=== PATIENT | male | born 1990 | race Asian ===

== ENCOUNTER 2021-05-02 00:25 | Emergency (ER) | payer MEDICAID ==
[~2021-05-02] VITALS: Ht 162.6 cm; Wt 145.4 kg
[2021-05-02] MEDS ORDERED: MELA3TAB89 PO (00:33)
[2021-05-02 00:56] LABS: EOSINOPHILS % (AUTO) 2.4 % (1.0-6.0); HEMATOCRIT 25.4 % (41-53); HEMOGLOBIN 7.1 g/dL (13.5-17.5); LYMPHOCYTES % (AUTO) 18.4 % (22.0-44.0); MEAN CORPUSCULAR HEMOGLOBIN 14.6 pg (26.0-34.0); MEAN CORPUSCULAR VOLUME 52 fL (80-100); MONOCYTES # (AUTO) 0.7 K/uL (0.1-1.0); MONOCYTES % (AUTO) 6.4 % (2.0-9.0); NEUTROPHILS # (AUTO) 7.7 K/uL (1.8-7.7); NEUTROPHILS % (AUTO) 71.8 % (40.0-70.0); PLATELET COUNT (AUTO) 408 K/uL (150-450); RED BLOOD CELL COUNT(AUTO) 4.86 MIL/uL (4.50-5.90); RED CELL DISTRIBUTION WIDTH 20.7 % (11.5-14.5)
[2021-05-02 01:07] LABS: CALCIUM, TOTAL 8.7 mg/dL (8.8-10.5); CREATININE 1.55 mg/dL (0.60-1.30); POTASSIUM 3.6 mmol/L (3.5-5.1)
[2021-05-02 01:13] LABS: ALBUMIN 3.5 g/dL (3.4-5.0); BILIRUBIN,TOTAL 0.8 mg/dL (0.1-1.0); TOTAL PROTEIN, SERUM 8.2 g/dL (6.4-8.2)
[2021-05-02 01:17] LABS: PLATELET MORPHOLOGY COMMENT GIANT PLTS PRESENT
[2021-05-02] MEDS ORDERED: SODIUM CHLORIDE 0.9% 1,000 ML IV ONE (01:45)
[2021-05-02 02:28] LABS: COVID AG,FIA SOURCE NASOPHARYNGEAL
[2021-05-02] MEDS ORDERED: LORazepam 1 MG TABLET PO ONE (02:30)
[2021-05-02 02:57] LABS: AMPHET/METH SCREEN,URINE NEGATIVE (NEGATIVE); BARBITURATE SCREEN, URINE NEGATIVE (NEGATIVE); BENZODIAZEPINES SCREEN,URINE NEGATIVE (NEGATIVE); CANNABINOID SCREEN,URINE NEGATIVE (NEGATIVE); COCAINE SCREEN,URINE POSITIVE (NEGATIVE); METHADONE SCREEN, URINE NEGATIVE (NEGATIVE); OPIATE SCREEN,URINE NEGATIVE (NEGATIVE)
[2021-05-02 03:00] LABS: PHENCYCLIDINE SCREEN,URINE NEGATIVE (NEGATIVE)
[2021-05-02 04:40] VITALS: BP 180/102
== END 2021-05-02 04:43 | disposition home or self-care (01) ==
LOC: EMS 00:26
DX: R06.02 Shortness of breath (principal); F17.210 Nicotine dependence, cigarettes, uncomplicated; Z20.822 Contact with and (suspected) exposure to COVID-19
CPT/HCPCS: 36415; 71045; 80053; 80307; 82550; 83880; 84484; 85025; 87426; 93005; 96360; 99285; G0480; J7030

== ENCOUNTER 2021-05-31 17:41 | Inpatient (IN) | payer MEDICAID ==
[~2021-05-31] VITALS: Ht 162.6 cm; Wt 118.8 kg
[~2021-05-31 17:41] MED LIST: MELA3TAB89 PO
[2021-05-31 20:39] LABS: HEMATOCRIT 28.2 % (41-53); HEMOGLOBIN 7.8 g/dL (13.5-17.5); MEAN CORPUSCULAR HEMOGLOBIN 13.9 pg (26.0-34.0); MEAN CORPUSCULAR HGB CONC 27.5 G/dL (31.0-37.0); MEAN CORPUSCULAR VOLUME 50 fL (80-100); PLATELET COUNT (AUTO) 468 K/uL (150-450); RED CELL DISTRIBUTION WIDTH 21.8 % (11.5-14.5)
[2021-05-31 20:47] LABS: CALCIUM, TOTAL 7.6 mg/dL (8.8-10.5); CREATININE 1.43 mg/dL (0.60-1.30); POTASSIUM 3.7 mmol/L (3.5-5.1)
[2021-05-31 20:49] LABS: INR 1.2 (0.9-1.1); PROTHROMBIN TIME 12.4 SEC (9.4-11.6)
[2021-05-31 21:02] LABS: COVID AG,FIA SOURCE NASOPHARYNGEAL
[2021-05-31 21:12] LABS: ALBUMIN 3.5 g/dL (3.4-5.0); BILIRUBIN,TOTAL 1.1 mg/dL (0.1-1.0)
[2021-05-31] MEDS ORDERED: LORazepam 1 MG TABLET PO ONE (21:45)
[2021-05-31] MEDS ORDERED: LORazepam 2 MG/ML VIAL IVP ONE (21:45)
[2021-05-31] MEDS ORDERED: ATENOLOL 25 MG TABLET PO ONE (22:15)
[2021-05-31] MEDS ORDERED: 0.9% SODIUM CHLORIDE 10 ML SYRINGE IVP PRN (22:15)
[2021-05-31] MEDS ORDERED: ONDANSETRON HCL 4 MG/2 ML VIAL IVP PRN (22:15)
[2021-05-31] MEDS ORDERED: AZITHROMYCIN 500 MG/NS 250 ML IV ONE (22:15)
[2021-05-31] MEDS ORDERED: ACETAMINOPHEN 325 MG TABLET PO PRN (22:15)
[2021-05-31] MEDS ORDERED: SODIUM CHLORIDE 0.9% 1,000 ML IV ONE (22:15)
[2021-05-31 22:26] LABS: BAND NEUTROPHILS % (MANUAL) 3 % (0-5); BASOPHILS % (MANUAL) 1 % (0-2); LYMPHOCYTES % (MANUAL) 17 % (22-44); MONOCYTES % (MANUAL) 3 % (2-9); SEGMENTED NEUTROPHILS % 76 % (40-70)
[2021-05-31 23:59] LABS: D-DIMER 0.32 mg/L FEU (0.00-0.50)
[2021-06-01 00:17] LABS: APPEARANCE,URINE CLEAR (CLEAR); BILIRUBIN,URINE NEGATIVE (NEGATIVE); GLUCOSE, URINE (UA) NEGATIVE (NEGATIVE); KETONES,URINE NEGATIVE (NEGATIVE); LEUKOCYTE ESTERASE ,URINE NEGATIVE (NEGATIVE); NITRATE,URINE NEGATIVE (NEGATIVE); OCCULT BLOOD,URINE NEGATIVE (NEGATIVE); PH,URINE 5.5 (5.0-8.0); PROTEIN,URINE SEE CONFIRM (NEGATIVE); UROBILINOGEN,URINE 0.2 mg/dL (<=1.0)
[2021-06-01 00:20] LABS: AMPHET/METH SCREEN,URINE NEGATIVE (NEGATIVE); BARBITURATE SCREEN, URINE NEGATIVE (NEGATIVE); BENZODIAZEPINES SCREEN,URINE NEGATIVE (NEGATIVE); CANNABINOID SCREEN,URINE NEGATIVE (NEGATIVE); COCAINE SCREEN,URINE NEGATIVE (NEGATIVE); METHADONE SCREEN, URINE NEGATIVE (NEGATIVE); OPIATE SCREEN,URINE NEGATIVE (NEGATIVE)
[2021-06-01 00:22] LABS: PHENCYCLIDINE SCREEN,URINE NEGATIVE (NEGATIVE)
[2021-06-01 00:27] LABS: SULFOSALICYLIC ACID,URINE 1+ (Negative)
[2021-06-01 00:29] LABS: CREATININE,URINE RANDOM 155.3 mg/dL (30.0-125.0)
[2021-06-01 00:42] LABS: RBC,URINE 0-2 /HPF (0-2); WBC,URINE 0-2 /HPF (0-5)
[2021-06-01 00:43] LABS: BACTERIA,URINE Few /HPF (None Seen)
[2021-06-01 00:46] LABS: % IRON SATURATION 3.1 % (30-44)
[2021-06-01 06:26] LABS: BASOPHILS % (AUTO) 0.7 % (0.0-2.0); EOSINOPHILS % (AUTO) 1.1 % (1.0-6.0); HEMATOCRIT 25.9 % (41-53); LYMPHOCYTES # (AUTO) 1.6 K/uL (1.0-4.8); MEAN CORPUSCULAR HEMOGLOBIN 13.3 pg (26.0-34.0); MEAN CORPUSCULAR HGB CONC 26.3 G/dL (31.0-37.0); MEAN CORPUSCULAR VOLUME 50 fL (80-100); MONOCYTES # (AUTO) 0.6 K/uL (0.1-1.0); MONOCYTES % (AUTO) 5.8 % (2.0-9.0); NEUTROPHILS # (AUTO) 7.7 K/uL (1.8-7.7); NEUTROPHILS % (AUTO) 76.4 % (40.0-70.0); PLATELET COUNT (AUTO) 406 K/uL (150-450); RED BLOOD CELL COUNT(AUTO) 5.14 MIL/uL (4.50-5.90); RED CELL DISTRIBUTION WIDTH 21.5 % (11.5-14.5)
[2021-06-01 06:35] LABS: ALANINE AMINOTRANSFERASE 58 U/L (12-78); ALBUMIN 3.2 g/dL (3.4-5.0); ALKALINE PHOSPHATASE 72 U/L (46-116); ANION GAP 13 mmol/L (8-16); ASPARTATE AMINOTRANSFERASE 39 U/L (15-37); BILIRUBIN,TOTAL 1.1 mg/dL (0.1-1.0); CALCIUM, TOTAL 7.9 mg/dL (8.8-10.5); CARBON DIOXIDE 20 mmol/L (22-29); CHLORIDE 107 mmol/L (98-107); CREATININE 1.33 mg/dL (0.60-1.30); GLOMERULAR FILTR. RATE CALC > 60 mL/min (>60); GLUCOSE,RANDOM 101 mg/dL (70-110); POTASSIUM 3.9 mmol/L (3.5-5.1); SODIUM SERUM 140 mmol/L (136-145); TOTAL PROTEIN, SERUM 7.2 g/dL (6.4-8.2); UREA NITROGEN, BLOOD 19 mg/dL (7-18)
[2021-06-01 06:51] LABS: HEMOGLOBIN 6.8 g/dL (13.5-17.5)
[2021-06-01] MEDS ORDERED: ONDANSETRON HCL 4 MG/2 ML VIAL IVP PRN (07:30)
[2021-06-01] MEDS ORDERED: ACETAMINOPHEN 325 MG TABLET PO PRN (07:30)
[2021-06-01 08:24] LABS: EOSINOPHILS % (AUTO) 1.1 % (1.0-6.0); HEMOGLOBIN 7.3 g/dL (13.5-17.5); LYMPHOCYTES # (AUTO) 1.5 K/uL (1.0-4.8); MEAN CORPUSCULAR HEMOGLOBIN 13.1 pg (26.0-34.0); MEAN CORPUSCULAR HGB CONC 25.9 G/dL (31.0-37.0); MEAN CORPUSCULAR VOLUME 51 fL (80-100); MONOCYTES # (AUTO) 0.5 K/uL (0.1-1.0); MONOCYTES % (AUTO) 5.6 % (2.0-9.0); NEUTROPHILS # (AUTO) 7.2 K/uL (1.8-7.7); NEUTROPHILS % (AUTO) 75.3 % (40.0-70.0); PLATELET COUNT (AUTO) 425 K/uL (150-450); RED BLOOD CELL COUNT(AUTO) 5.53 MIL/uL (4.50-5.90); RED CELL DISTRIBUTION WIDTH 21.8 % (11.5-14.5)
[2021-06-01 10:12] VITALS: BP 145/89
[2021-06-01 11:04] VITALS: BP 144/68
[2021-06-01] MEDS: FERROUS SULFATE 325 MG EC TABLET PO SCH ×2 (12:38→17:28)
[2021-06-01] MEDS: BENZONATATE 100 MG CAPSULE PO PRN ×2 (12:38→20:30)
[2021-06-01 15:23] VITALS: BP 148/78
[2021-06-01 20:03] VITALS: BP 162/93
[2021-06-01 20:48] VITALS: BP 170/90
[2021-06-01] MEDS ORDERED: BENZOCAINE/MENTHOL LOZENGE PO PRN (21:00)
[2021-06-01] MEDS: LABETALOL HCL 100 MG TABLET PO SCH (21:36)
[2021-06-02 00:02] VITALS: BP 147/98
[2021-06-02 04:14] VITALS: BP 142/84
[2021-06-02 08:00] VITALS: BP 149/101
[2021-06-02] MEDS: LABETALOL HCL 100 MG TABLET PO SCH (09:00)
[2021-06-02] MEDS: FERROUS SULFATE 325 MG EC TABLET PO SCH ×3 (09:01→18:01)
[2021-06-02] MEDS ORDERED: METOPROLOL TARTRATE 25 MG TABLET PO SCH (10:45)
[2021-06-02] MEDS ORDERED: BENZ1LOZ50 PO (10:54)
[2021-06-02] MEDS ORDERED: FERR-72 PO (10:54)
[2021-06-02] MEDS ORDERED: AMLO-257 PO (10:54)
[2021-06-02] MEDS ORDERED: GUAIFDM PO (10:54)
[2021-06-02] MEDS ORDERED: LABE100T51 PO (10:54)
[2021-06-02] MEDS ORDERED: AZIT500T4 PO (10:55)
[2021-06-02] MEDS: GuaiFENesin/D-METHORPHAN [SUGAR-FREE] 200-20MG/10 ML SYRUP UDCUP PO SCH ×2 (11:56→18:01)
[2021-06-02 11:58] VITALS: BP 130/98
[2021-06-02 12:33] LABS: ANION GAP 10 mmol/L (8-16); CALCIUM, TOTAL 8.3 mg/dL (8.8-10.5); CARBON DIOXIDE 23 mmol/L (22-29); CHLORIDE 105 mmol/L (98-107); CREATININE 1.01 mg/dL (0.60-1.30); EOSINOPHILS % (AUTO) 1.9 % (1.0-6.0); GLOMERULAR FILTR. RATE CALC > 60 mL/min (>60); GLUCOSE,RANDOM 132 mg/dL (70-110); LYMPHOCYTES # (AUTO) 2.4 K/uL (1.0-4.8); LYMPHOCYTES % (AUTO) 19.5 % (22.0-44.0); MEAN CORPUSCULAR HEMOGLOBIN 12.8 pg (26.0-34.0); MEAN CORPUSCULAR HGB CONC 25.1 G/dL (31.0-37.0); MEAN CORPUSCULAR VOLUME 51 fL (80-100); MONOCYTES # (AUTO) 1.1 K/uL (0.1-1.0); MONOCYTES % (AUTO) 9.2 % (2.0-9.0); NEUTROPHILS # (AUTO) 8.3 K/uL (1.8-7.7); NEUTROPHILS % (AUTO) 68.4 % (40.0-70.0); PLATELET COUNT (AUTO) 411 K/uL (150-450); RED BLOOD CELL COUNT(AUTO) 5.49 MIL/uL (4.50-5.90); RED CELL DISTRIBUTION WIDTH 21.8 % (11.5-14.5); SODIUM SERUM 138 mmol/L (136-145); UREA NITROGEN, BLOOD 17 mg/dL (7-18)
[2021-06-02 15:47] VITALS: BP 79/40
[2021-06-02 16:42] VITALS: BP 143/96
== END 2021-06-02 18:45 | disposition home or self-care (01) | DRG 113 ==
LOC: EMS 17:42 → 5S 22:38
PROVIDERS: ADMIT Internal Medicine; ATTEND Internal Medicine
DX: J06.9 Acute upper respiratory infection, unspecified (principal); R65.11 Systemic inflammatory response syndrome (SIRS) of non-infectious origin with acute organ dysfunction; N17.9 Acute kidney failure, unspecified; D63.8 Anemia in other chronic diseases classified elsewhere; D50.9 Iron deficiency anemia, unspecified; F17.210 Nicotine dependence, cigarettes, uncomplicated; Z20.822 Contact with and (suspected) exposure to COVID-19; I12.9 Hypertensive chronic kidney disease with stage 1 through stage 4 chronic kidney disease, or unspecified chronic kidney disease; N18.9 Chronic kidney disease, unspecified; E66.01 Morbid (severe) obesity due to excess calories; Z79.899 Other long term (current) drug therapy; Z68.41 Body mass index [BMI] 40.0-44.9, adult
CPT/HCPCS: 71045; 80048; 80053; 81001; 81002; 82550; 82570; 83540; 83550; 83690; 83880; 84300; 84484; 85025; 85045; 85379; 85610; 85730; 86850; 86900; 86901; 86923; 93005; 99285; J0456; J2060; J2405; J7030; 36415-L1; 36415-TC; U0003

== ENCOUNTER 2025-02-14 23:13 | Inpatient (IN) | payer MEDICAID ==
[~2025-02-14] VITALS: Ht 162.6 cm; Wt 138.6 kg
[~2025-02-14 23:13] MED LIST changes: +FERR325T27 PO; -MELA3TAB89 PO; +METO25 PO; +PANT-31 PO
[2025-02-14] MEDS: NITROGLYCERIN 2% (1 GM=INCH) OINTMENT PACKET TP ONE (23:52)
[2025-02-15] VITALS (8 sets, daily range): BP systolic 128–140; BP diastolic 72–82; PULSE 50–118; RESP 29–48; TEMP 98.5–98.7; O2SAT 94–99
[2025-02-15] MEDS ORDERED: METOPROLOL TARTRATE 25 MG TABLET PO ONE
[2025-02-15] MEDS: AmLODIPine BESYLATE 5 MG TABLET PO ONE ×2 (00:08→02:52)
[2025-02-15 00:15] LABS: BASOPHILS % (AUTO) 0.5 % (0.0-2.0); EOSINOPHILS % (AUTO) 3.1 % (1.0-6.0); HEMOGLOBIN 14.1 g/dL (13.5-17.5); LYMPHOCYTES # (AUTO) 0.7 K/uL (1.0-4.8); LYMPHOCYTES % (AUTO) 6.6 % (22.0-44.0); MEAN CORPUSCULAR HEMOGLOBIN 22.1 pg (26.0-34.0); MEAN CORPUSCULAR VOLUME 69 fL (80-100); MONOCYTES # (AUTO) 0.6 K/uL (0.1-1.0); MONOCYTES % (AUTO) 5.8 % (2.0-9.0); PLATELET COUNT (AUTO) 309 K/uL (150-450); RED BLOOD CELL COUNT(AUTO) 6.35 MIL/uL (4.50-5.90); RED CELL DISTRIBUTION WIDTH 20.8 % (11.5-14.5); WHITE BLOOD COUNT (AUTO) 10.7 K/uL (4.5-11.0)
[2025-02-15 00:27] LABS: ANION GAP 13 mmol/L (8-16); CALCIUM, TOTAL 8.8 mg/dL (8.8-10.5); CARBON DIOXIDE 22 mmol/L (22-29); CHLORIDE 104 mmol/L (98-107); CREATININE 1.89 mg/dL (0.60-1.30); GLOMERULAR FILTR. RATE CALC 41 mL/min (>60); GLUCOSE,RANDOM 99 mg/dL (70-110); POTASSIUM 3.5 mmol/L (3.5-5.1); SODIUM SERUM 139 mmol/L (136-145); UREA NITROGEN, BLOOD 26 mg/dL (7-18)
[2025-02-15 00:31] LABS: ALBUMIN 2.9 g/dL (3.4-5.0); BILIRUBIN,DIRECT 0.4 mg/dL (0.00-0.20); BILIRUBIN,TOTAL 1.2 mg/dL (0.1-1.0); TOTAL PROTEIN, SERUM 7.4 g/dL (6.4-8.2)
[2025-02-15 00:32] LABS: PROTHROMBIN TIME 11.9 SEC (9.4-11.6)
[2025-02-15 00:36] LABS: TROPONIN I-HIGH SENSITIVITY 47 ng/L (<76)
[2025-02-15] MEDS: FUROSEMIDE 20 MG/2 ML VIAL IVP ONE (00:51)
[2025-02-15 02:26] LABS: APPEARANCE,URINE CLEAR (CLEAR); BILIRUBIN,URINE NEGATIVE (NEGATIVE); COLOR,URINE COLORLESS (YELLOW); GLUCOSE, URINE (UA) NEGATIVE (NEGATIVE); KETONES,URINE NEGATIVE (NEGATIVE); LEUKOCYTE ESTERASE ,URINE NEGATIVE (NEGATIVE); NITRATE,URINE NEGATIVE (NEGATIVE); OCCULT BLOOD,URINE TRACE (NEGATIVE); PH,URINE 5.5 (5.0-8.0); PROTEIN,URINE 100-200,SEE CONFIRM mg/dL (NEGATIVE); SPECIFIC GRAVITIY, URINE 1.005 (1.003-1.030); UROBILINOGEN,URINE <=1.0 mg/dL (<=1.0)
[2025-02-15 02:36] LABS: RBC,URINE 0-2 /HPF (0-2); WBC,URINE 0-2 /HPF (0-5)
[2025-02-15 02:37] LABS: BACTERIA,URINE Rare /HPF (None Seen); SULFOSALICYLIC ACID,URINE 3+ (Negative)
[2025-02-15] MEDS: HydrALAZINE HCL 20 MG/ML VIAL IVP ONE (02:52)
[2025-02-15] MEDS: NiCARDipine HCL 25 MG in SODIUM CHLORIDE 0.9% 240 ML IV PRN ×2 (05:18→12:00)
[2025-02-15 06:14] LABS: AMPHET/METH SCREEN,URINE NEGATIVE (NEGATIVE); BARBITURATE SCREEN, URINE NEGATIVE (NEGATIVE); BENZODIAZEPINES SCREEN,URINE NEGATIVE (NEGATIVE); CANNABINOID SCREEN,URINE NEGATIVE (NEGATIVE); COCAINE SCREEN,URINE NEGATIVE (NEGATIVE); METHADONE SCREEN, URINE NEGATIVE (NEGATIVE); OPIATE SCREEN,URINE NEGATIVE (NEGATIVE); PHENCYCLIDINE SCREEN,URINE NEGATIVE (NEGATIVE)
[2025-02-15 06:15] LABS: ALCOHOL, URINE DRUG SCREEN NEGATIVE (NEGATIVE)
[2025-02-15 06:16] LABS: PH,URINE DRUG SCREEN 5.5 (5.0-8.0)
[2025-02-15] MEDS ORDERED: ONDANSETRON HCL 4 MG/2 ML VIAL IVP PRN (08:00)
[2025-02-15] MEDS ORDERED: ACETAMINOPHEN 325 MG TABLET PO PRN (08:00)
[2025-02-15] MEDS ORDERED: BISACODYL 10 MG RECTAL RECTAL SUPPOSITORY PR PRN (08:00)
[2025-02-15] MEDS: METOPROLOL TARTRATE 50 MG TABLET PO SCH (09:03)
[2025-02-15] MEDS: FAMOTIDINE 20 MG TABLET PO SCH (09:03)
[2025-02-15] MEDS: DOCUSATE SODIUM 100 MG CAPSULE PO SCH (09:03)
[2025-02-15] MEDS: HEPARIN SODIUM,PORCINE 5,000 UNITS/ML VIAL SQ SCH (09:03)
[2025-02-15] MEDS: LOSARTAN POTASSIUM 50 MG TABLET PO SCH (09:03)
[2025-02-15 17:42] LABS: ABG BASE EXCESS -5.1 mmol/L (-2.0-3.0); ABG CARBOXYHEMOGLOBIN 1.1 % (0.5-1.5); ABG METHEMOGLOBIN 0.2 % (0.0-1.5); ABG OXYGEN CONTENT 18.9 mL/dL (15.0-23.0); ABG OXYHEMOGLOBIN 93.8 % (94.0-98.0); ABG PCO2 33 mmHg (32.0-48.0); ABG PH 7.395 (7.350-7.450); ABG TOTAL HEMOGLOBIN 14.3 G/dL (13.5-17.5); PO2, ARTERIAL BG 77.9 mmHg (83.0-108.0); SOURCE, BLOOD GAS ARTERIAL; TEMPERATURE, FAHRENHEIT, BG 98.5 FAHREN (96.0-98.6)
[2025-02-15 17:43] LABS: ABG A-A DIFF O2 169.5 mmHg (10-20.0); ALLEN TEST, BLOOD GAS Positive; O2 DEVICE,BLOOD GAS CANNULA (ROOM AIR); SITE, BLOOD GAS LFT RADIAL
[2025-02-15] MEDS: AmLODIPine BESYLATE 5 MG TABLET PO SCH (20:42)
[2025-02-15 22:39] LABS: APPEARANCE,URINE CLEAR (CLEAR); BILIRUBIN,URINE NEGATIVE (NEGATIVE); COLOR,URINE YELLOW (YELLOW); GLUCOSE, URINE (UA) NEGATIVE (NEGATIVE); KETONES,URINE NEGATIVE (NEGATIVE); LEUKOCYTE ESTERASE ,URINE NEGATIVE (NEGATIVE); NITRATE,URINE NEGATIVE (NEGATIVE); OCCULT BLOOD,URINE TRACE (NEGATIVE); PROTEIN,URINE 300-600,SEE CONFIRM mg/dL (NEGATIVE); UROBILINOGEN,URINE <=1.0 mg/dL (<=1.0)
[2025-02-15 22:49] LABS: BACTERIA,URINE Rare /HPF (None Seen); SQUAMOUS EPITHELIAL CELL,UR Rare /LPF (None Seen); WBC,URINE 0-2 /HPF (0-5)
[2025-02-15] MEDS: ETHYL ALCOHOL 62% ANTISEPTIC NASAL SANITIZER 0.6 ML AMPUL NASAL SCH (23:50)
[2025-02-16] VITALS (7 sets, daily range): BP systolic 104–162; BP diastolic 68–111; PULSE 69–78; RESP 22–36; TEMP 97.7–98.4; O2SAT 94–100
[2025-02-16 06:10] LABS: BASOPHILS % (AUTO) 0.8 % (0.0-2.0); EOSINOPHILS % (AUTO) 5.1 % (1.0-6.0); HEMATOCRIT 42.7 % (41-53); HEMOGLOBIN 13.9 g/dL (13.5-17.5); LYMPHOCYTES # (AUTO) 0.8 K/uL (1.0-4.8); LYMPHOCYTES % (AUTO) 11.1 % (22.0-44.0); MEAN CORPUSCULAR HEMOGLOBIN 22.6 pg (26.0-34.0); MEAN CORPUSCULAR HGB CONC 32.6 G/dL (31.0-37.0); MEAN CORPUSCULAR VOLUME 70 fL (80-100); MONOCYTES # (AUTO) 0.5 K/uL (0.1-1.0); MONOCYTES % (AUTO) 7.5 % (2.0-9.0); NEUTROPHILS # (AUTO) 5.6 K/uL (1.8-7.7); NEUTROPHILS % (AUTO) 75.5 % (40.0-70.0); PLATELET COUNT (AUTO) 325 K/uL (150-450); RED BLOOD CELL COUNT(AUTO) 6.15 MIL/uL (4.50-5.90); WHITE BLOOD COUNT (AUTO) 7.4 K/uL (4.5-11.0)
[2025-02-16 06:21] LABS: CALCIUM, TOTAL 8.5 mg/dL (8.8-10.5); CREATININE 2.28 mg/dL (0.60-1.30); POTASSIUM 3.6 mmol/L (3.5-5.1)
[2025-02-16 07:49] LABS: RBC MORPHOLOGY COMMENT ABNORMAL RBC MORPH
[2025-02-16] MEDS: BUMETANIDE 0.25 MG/ML 4 ML VIAL IVP SCH (20:50)
[2025-02-16 21:31] LABS: CREATININE,URINE RANDOM 125.7 mg/dL (30.0-125.0)
[2025-02-16] MEDS: HydrALAZINE HCL 20 MG/ML VIAL IVP PRN (23:13)
[2025-02-17] VITALS: BP 168/108; PULSE 71; PULSE 76; RESP 26; TEMP 97.7; O2SAT 98
[2025-02-17 04:00] VITALS: BP 177/105; PULSE 72; RESP 29; TEMP 98.2; O2SAT 97
[2025-02-17 06:07] LABS: BASOPHILS % (AUTO) 0.6 % (0.0-2.0); HEMATOCRIT 43.1 % (41-53); HEMOGLOBIN 13.5 g/dL (13.5-17.5); LYMPHOCYTES # (AUTO) 0.9 K/uL (1.0-4.8); LYMPHOCYTES % (AUTO) 12.8 % (22.0-44.0); MEAN CORPUSCULAR HEMOGLOBIN 22.1 pg (26.0-34.0); MEAN CORPUSCULAR HGB CONC 31.3 G/dL (31.0-37.0); MEAN CORPUSCULAR VOLUME 70 fL (80-100); MONOCYTES # (AUTO) 0.6 K/uL (0.1-1.0); MONOCYTES % (AUTO) 8.5 % (2.0-9.0); NEUTROPHILS # (AUTO) 5.2 K/uL (1.8-7.7); NEUTROPHILS % (AUTO) 72.1 % (40.0-70.0); PLATELET COUNT (AUTO) 340 K/uL (150-450); RED BLOOD CELL COUNT(AUTO) 6.13 MIL/uL (4.50-5.90); RED CELL DISTRIBUTION WIDTH 21.5 % (11.5-14.5); WHITE BLOOD COUNT (AUTO) 7.2 K/uL (4.5-11.0)
[2025-02-17 06:24] LABS: CALCIUM, TOTAL 8.8 mg/dL (8.8-10.5); CREATININE 1.69 mg/dL (0.60-1.30); POTASSIUM 4.1 mmol/L (3.5-5.1)
[2025-02-17 06:31] LABS: CHOL/HDL RATIO 4.2 (4.2-7.3); MAGNESIUM 2.3 mg/dL (1.80-2.40); PHOSPHORUS 4.1 mg/dL (2.5-4.9)
[2025-02-17 08:00] VITALS: BP 88/30; PULSE 74; RESP 22; TEMP 98; O2SAT 98
[2025-02-17 08:36] LABS: RBC MORPHOLOGY COMMENT ABNORMAL RBC MORPH
[2025-02-17 12:30] VITALS: BP 145/92; PULSE 71; RESP 20; TEMP 97.7
[2025-02-17 16:00] VITALS: BP 141/91; PULSE 70; RESP 20; TEMP 97.5; O2SAT 99
[2025-02-17 20:00] VITALS: BP 143/108; PULSE 71; RESP 20; TEMP 97.3; O2SAT 100
[2025-02-17] MEDS: CloNIDine HCL 0.1 MG TABLET PO SCH (21:12)
[2025-02-18] VITALS: BP 114/89; PULSE 65; RESP 20; TEMP 97.7; O2SAT 100
[2025-02-18 04:00] VITALS: BP 117/89; PULSE 69; RESP 20; TEMP 97.5; O2SAT 100
[2025-02-18 07:38] VITALS: BP 151/83; PULSE 66; RESP 22; TEMP 97.7; O2SAT 92
[2025-02-18 11:25] VITALS: BP 119/90; PULSE 72; RESP 22; TEMP 97.9; O2SAT 93
[2025-02-18 11:56] LABS: CALCIUM, TOTAL 8.9 mg/dL (8.8-10.5); CREATININE 1.8 mg/dL (0.60-1.30)
[2025-02-18] MEDS ORDERED: AMLO-257 PO (12:03)
[2025-02-18] MEDS ORDERED: BUME1TAB50 PO (12:03)
[2025-02-18 12:06] LABS: MAGNESIUM 2.2 mg/dL (1.80-2.40); PHOSPHORUS 4.6 mg/dL (2.5-4.9)
== END 2025-02-18 13:55 | disposition home or self-care (01) | DRG 133 ==
LOC: EMS 23:13 → EDH 02-15 05:40 → ICU 02-15 11:12 → 5N 02-17 12:15
PROVIDERS: ADMIT Internal Medicine; ATTEND Internal Medicine
PROC: 5A09357 Assistance with Respiratory Ventilation, Less than 24 Consecutive Hours, Continuous Positive Airway Pressure (ICD-10-PCS; principal; 2025-02-15)
PROC: 5A09357 Assistance with Respiratory Ventilation, Less than 24 Consecutive Hours, Continuous Positive Airway Pressure (ICD-10-PCS; 2025-02-16)
DX: J96.01 Acute respiratory failure with hypoxia (principal); N17.9 Acute kidney failure, unspecified; E44.0 Moderate protein-calorie malnutrition; I13.0 Hypertensive heart and chronic kidney disease with heart failure and stage 1 through stage 4 chronic kidney disease, or unspecified chronic kidney disease; I50.9 Heart failure, unspecified; E66.2 Morbid (severe) obesity with alveolar hypoventilation; I16.1 Hypertensive emergency; N18.4 Chronic kidney disease, stage 4 (severe); Z79.899 Other long term (current) drug therapy; Z68.43 Body mass index [BMI] 50.0-59.9, adult; Z87.891 Personal history of nicotine dependence; Z91.148 Patient's other noncompliance with medication regimen for other reason; Z95.2 Presence of prosthetic heart valve
CPT/HCPCS: 71045; 76770; 80048; 80061; 80076; 80307; 81001; 81002; 82550; 82570; 82805; 83036; 83735; 83880; 84100; 84156; 84484; 85025; 85610; 85730; 87081; 93005; 93306; 94660; 97161; 97530; 99285; J0360; J1644; J1940; J3490; J7050; 36415-L1; 36415-TC

== ENCOUNTER 2025-07-12 19:57 | Inpatient (IN) | payer MEDICAID, OTHER ==
[~2025-07-12] VITALS: Ht 162.6 cm; Wt 122.1 kg
[~2025-07-12 19:57] MED LIST changes: +AMLO-257 PO; +ATOR20TA65 PO; +CARV3 PO; +COLC-3 PO; -FERR325T27 PO; +FURO40TA6 PO; -METO25 PO; -PANT-31 PO
[2025-07-12 21:05] LABS: PLATELET COUNT (AUTO) 375 K/uL (150-450); RED BLOOD CELL COUNT(AUTO) 6.45 MIL/uL (4.50-5.90); RED CELL DISTRIBUTION WIDTH 22.2 % (11.5-14.5); WHITE BLOOD COUNT (AUTO) 9.7 K/uL (4.5-11.0)
[2025-07-12 21:06] LABS: CALCIUM, TOTAL 8.9 mg/dL (8.8-10.5); CREATININE 2.30 mg/dL (0.60-1.30); GLOMERULAR FILTR. RATE CALC 33 mL/min (>60); GLUCOSE,RANDOM 165 mg/dL (70-110); SODIUM SERUM 139 mmol/L (136-145); UREA NITROGEN, BLOOD 29 mg/dL (7-18)
[2025-07-12 21:12] LABS: ALCOHOL, BLOOD (SERUM) < 3 mg/dL (0-10); ASPARTATE AMINOTRANSFERASE 22 U/L (15-37); CREATINE KINASE, TOTAL ONLY 79 U/L (39-308); TOTAL PROTEIN, SERUM 7.5 g/dL (6.4-8.2)
[2025-07-12 21:21] LABS: TROPONIN I-HIGH SENSITIVITY 31 ng/L (<76)
[2025-07-12 21:22] LABS: RBC MORPHOLOGY COMMENT ABNORMAL RBC MORPH
[2025-07-12] MEDS ORDERED: ONDANSETRON HCL 4 MG/2 ML VIAL IVP PRN (23:00)
[2025-07-12] MEDS ORDERED: ACETAMINOPHEN 325 MG TABLET PO PRN (23:00)
[2025-07-12] MEDS: LABETALOL HCL 5 MG/ML 20 ML VIAL IVP ONE (23:23)
[2025-07-12 23:37] LABS: APPEARANCE,URINE CLEAR (CLEAR); GLUCOSE, URINE (UA) NEGATIVE (NEGATIVE); LEUKOCYTE ESTERASE ,URINE NEGATIVE (NEGATIVE); NITRATE,URINE NEGATIVE (NEGATIVE); OCCULT BLOOD,URINE NEGATIVE (NEGATIVE); PH,URINE DRUG SCREEN 6.0 (5.0-8.0); SPECIFIC GRAVITIY, URINE 1.003 (1.003-1.030)
[2025-07-12 23:44] LABS: ALCOHOL, URINE DRUG SCREEN NEGATIVE (NEGATIVE); AMPHET/METH SCREEN,URINE NEGATIVE (NEGATIVE); BARBITURATE SCREEN, URINE NEGATIVE (NEGATIVE); CANNABINOID SCREEN,URINE NEGATIVE (NEGATIVE); COCAINE SCREEN,URINE NEGATIVE (NEGATIVE); METHADONE SCREEN, URINE NEGATIVE (NEGATIVE)
[2025-07-12] MEDS: POTASSIUM CHLORIDE 20 MEQ ER TABLET PO ONE (23:47)
[2025-07-13] MEDS: LABETALOL HCL 200 MG in DEXTROSE 5%-WATER 160 ML IV PRN (00:19)
[2025-07-13 00:20] LABS: TROPONIN I-HIGH SENSITIVITY 34 ng/L (<76)
[2025-07-13] MEDS: HEPARIN SODIUM,PORCINE 5,000 UNITS/ML VIAL SQ SCH (00:27)
[2025-07-13 07:08] LABS: PLATELET COUNT (AUTO) 375 K/uL (150-450); RED BLOOD CELL COUNT(AUTO) 6.27 MIL/uL (4.50-5.90); RED CELL DISTRIBUTION WIDTH 22.1 % (11.5-14.5); WHITE BLOOD COUNT (AUTO) 8.9 K/uL (4.5-11.0)
[2025-07-13 07:12] LABS: SODIUM SERUM 140 mmol/L (136-145)
[2025-07-13 07:13] LABS: CALCIUM, TOTAL 8.8 mg/dL (8.8-10.5); CREATININE 1.90 mg/dL (0.60-1.30); GLOMERULAR FILTR. RATE CALC 41 mL/min (>60); GLUCOSE,RANDOM 122 mg/dL (70-110); UREA NITROGEN, BLOOD 25 mg/dL (7-18)
[2025-07-13 07:22] LABS: TROPONIN I-HIGH SENSITIVITY 28 ng/L (<76)
[2025-07-13 08:13] LABS: RBC MORPHOLOGY COMMENT ABNORMAL RBC MORPH
[2025-07-13] MEDS: FUROSEMIDE 40 MG/4 ML VIAL IVP SCH (09:38)
[2025-07-13 12:00] VITALS: BP 150/73; PULSE 77; RESP 26; TEMP 97.7; O2SAT 96
[2025-07-13 16:00] VITALS: BP 166/55; PULSE 93; RESP 33; TEMP 97.8; O2SAT 97
[2025-07-13 20:00] VITALS: BP 138/92; PULSE 90; PULSE 91; RESP 23; TEMP 97.9; O2SAT 95
[2025-07-14] VITALS: BP 153/76; PULSE 90; PULSE 91; RESP 23; TEMP 98; O2SAT 95
[2025-07-14 04:00] VITALS: BP 127/65; PULSE 87; PULSE 97; RESP 23; TEMP 97.8; O2SAT 96
[2025-07-14 04:07] LABS: HEPATITIS C AB (EIA) Non Reactive (Non Reactive)
[2025-07-14 05:46] LABS: BAND NEUTROPHILS % (MANUAL) 0 % (0-5)
[2025-07-14 05:48] LABS: PLATELET COUNT (AUTO) 387 K/uL (150-450); RED BLOOD CELL COUNT(AUTO) 6.38 MIL/uL (4.50-5.90); RED CELL DISTRIBUTION WIDTH 22.6 % (11.5-14.5); WHITE BLOOD COUNT (AUTO) 7.7 K/uL (4.5-11.0)
[2025-07-14 06:10] LABS: CALCIUM, TOTAL 8.8 mg/dL (8.8-10.5); CREATININE 1.45 mg/dL (0.60-1.30); GLOMERULAR FILTR. RATE CALC 55.0 mL/min (>60); GLUCOSE,RANDOM 120.0 mg/dL (70-110); SODIUM SERUM 139.0 mmol/L (136-145); UREA NITROGEN, BLOOD 18.0 mg/dL (7-18)
[2025-07-14 06:53] LABS: EOSINOPHILS % (MANUAL) 6 % (1-6); LYMPHOCYTES % (MANUAL) 12 % (22-44); MONOCYTES % (MANUAL) 6 % (2-9); SEGMENTED NEUTROPHILS % 76 % (40-70)
[2025-07-14 06:54] LABS: RBC MORPHOLOGY COMMENT ABNORMAL RBC MORPH
[2025-07-14 08:00] VITALS: BP 145/62; PULSE 86; PULSE 89; RESP 30; TEMP 97.5; O2SAT 94
[2025-07-14 12:00] VITALS: BP 162/105; PULSE 102; PULSE 92; RESP 32; TEMP 98.1; O2SAT 93
[2025-07-14 16:00] VITALS: BP 155/79; PULSE 95; RESP 30; TEMP 97.8; O2SAT 95
[2025-07-14 16:10] LABS: INFLUENZA A-RTPCR,COMBO NEGATIVE (NEGATIVE); INFLUENZA B-RTPCR,COMBO NEGATIVE (NEGATIVE); RESPIRATORY SYNCYTIAL VRS-PCR NEGATIVE (NEGATIVE); SARS COVID19 RTPCR, COMBO NEGATIVE (NEGATIVE)
[2025-07-14] MEDS ORDERED: ZOLPIDEM TARTRATE 5 MG TABLET PEG PRN (19:15)
[2025-07-14] MEDS ORDERED: MAGNESIUM HYDROXIDE SUSPENSION 30 ML UDCUP PEG PRN (19:15)
[2025-07-14] MEDS ORDERED: ACETAMINOPHEN 325 MG TABLET PEG PRN (19:15)
[2025-07-14] MEDS ORDERED: ALBUTEROL SULFATE 2.5 MG/0.5 ML NEB SOLUTION NEB PRN (19:15)
[2025-07-14] MEDS ORDERED: BISACODYL 10 MG RECTAL RECTAL SUPPOSITORY PR PRN (19:15)
[2025-07-14] MEDS ORDERED: POTASSIUM CHL 10 MEQ/WATER 50 ML IV PRN (19:15)
[2025-07-14] MEDS ORDERED: OxyCODONE HCL/ACETAMINOPHEN 5-325 MG TABLET PEG PRN (19:15)
[2025-07-14] MEDS ORDERED: MORPHINE SULFATE 4 MG/ML SYRINGE IVP PRN (19:15)
[2025-07-14] MEDS ORDERED: ONDANSETRON HCL 4 MG/2 ML VIAL IVP PRN (19:15)
[2025-07-14] MEDS ORDERED: IPRATROPIUM BROMIDE 0.5 MG/2.5 ML NEB SOLUTION NEB PRN (19:15)
[2025-07-14] MEDS: POTASSIUM CHLORIDE 20 MEQ ER TABLET PO PRN (19:50)
[2025-07-14 20:00] VITALS: BP 145/85; PULSE 95; RESP 15; TEMP 97.5; O2SAT 95
[2025-07-14] MEDS: FUROSEMIDE 40 MG/4 ML VIAL IVP SCH (20:40)
[2025-07-14] MEDS: DOCUSATE SODIUM 100 MG/10 ML LIQUID UDCUP PEG SCH (20:40)
[2025-07-15] VITALS: BP 160/87; PULSE 96; RESP 14; TEMP 98; O2SAT 92
[2025-07-15] MEDS: HEPARIN SODIUM,PORCINE 5,000 UNITS/ML VIAL SQ SCH (01:04)
[2025-07-15 04:00] VITALS: BP 158/104; PULSE 93; RESP 11; TEMP 98.2; O2SAT 95
[2025-07-15 06:28] LABS: PLATELET COUNT (AUTO) 396 K/uL (150-450); RED BLOOD CELL COUNT(AUTO) 6.36 MIL/uL (4.50-5.90); RED CELL DISTRIBUTION WIDTH 22.1 % (11.5-14.5); WHITE BLOOD COUNT (AUTO) 7.6 K/uL (4.5-11.0)
[2025-07-15 06:43] LABS: CALCIUM, TOTAL 8.9 mg/dL (8.8-10.5); CREATININE 1.65 mg/dL (0.60-1.30); GLOMERULAR FILTR. RATE CALC 48.0 mL/min (>60); GLUCOSE,RANDOM 116.0 mg/dL (70-110); SODIUM SERUM 139.0 mmol/L (136-145); UREA NITROGEN, BLOOD 20.0 mg/dL (7-18)
[2025-07-15] MEDS: POTASSIUM CHLORIDE 20 MEQ ER TABLET PO PRN (06:56)
[2025-07-15] MEDS: LEVOTHYROXINE SODIUM 50 MCG TABLET PEG SCH (06:56)
[2025-07-15 07:06] LABS: RBC MORPHOLOGY COMMENT ABNORMAL RBC MORPH
[2025-07-15 08:00] VITALS: BP 148/90; PULSE 95; RESP 26; TEMP 98.2; O2SAT 93
[2025-07-15] MEDS: PANTOPRAZOLE SODIUM 40 MG/VIAL IVP SCH (08:44)
[2025-07-15] MEDS ORDERED: AMLO-258 PO (11:32)
[2025-07-15] MEDS ORDERED: LEVO50 PEG (11:32)
[2025-07-15] MEDS ORDERED: SPIR50TA27 PO (11:32)
[2025-07-15] MEDS ORDERED: FURO40TA6 PO (11:32)
[2025-07-15] MEDS ORDERED: ATOR40TA28 PO (11:32)
[2025-07-15] MEDS ORDERED: CARV-165 PO (11:32)
[2025-07-15 12:00] VITALS: BP 151/97; PULSE 94; RESP 24; TEMP 97.1; O2SAT 94
[2025-07-15 13:25] VITALS: BP 157/88; RESP 22; TEMP 97.7; O2SAT 95
== END 2025-07-15 13:25 | disposition home or self-care (01) | DRG 194 ==
LOC: EMS 19:57 → EDH 22:52 → ICU 07-13 08:54
PROVIDERS: ADMIT Internal Medicine; ATTEND Hospitalist
DX: I13.0 Hypertensive heart and chronic kidney disease with heart failure and stage 1 through stage 4 chronic kidney disease, or unspecified chronic kidney disease (principal); N17.0 Acute kidney failure with tubular necrosis; Z95.2 Presence of prosthetic heart valve; I16.1 Hypertensive emergency; I50.33 Acute on chronic diastolic (congestive) heart failure; E78.5 Hyperlipidemia, unspecified; I45.10 Unspecified right bundle-branch block; N18.9 Chronic kidney disease, unspecified; Z20.822 Contact with and (suspected) exposure to COVID-19; E66.01 Morbid (severe) obesity due to excess calories; E87.6 Hypokalemia; Z68.42 Body mass index [BMI] 45.0-49.9, adult; Z79.899 Other long term (current) drug therapy
CPT/HCPCS: 71045; 80048; 80076; 80307; 81003; 82550; 83735; 83880; 84132; 84484; 85007; 85025; 85027; 85610; 85730; 86803; 87081; 87340; 87637; 93005; 99285; G0378; G0480; J0360; J1644; J1938; J2470; J3490; J7060; 36415-L1; 36415-TC